=== PATIENT | female | born 1990 | race Caucasian/White ===

== ENCOUNTER → 2019-10-12 12:10 | Outpatient (CLI) | payer OTHER, SELFPAY ==
--- NOTE | 2019-10-12 12:14 | RAD_ITS ---
STUDY: HYSTEROSALPINGOGRAM REASON FOR EXAM: Female, 29 years old. FOR FERTILITY -- 4.10 MGY -- 1 IMAGE RADIATION DOSAGE (If Supplied By Facility): CTDIvol = ( ) mGy, DLP = ( ) mGycm. Individualized dose optimization techniques were used for this CT.? FLUOROSCOPY TIME (if supplied): ( 13 )seconds TECHNIQUE: Study was performed by Dr. Roberto, fluoroscopy provided by Dr. Lopez COMPARISON: None. FINDINGS: The cervix was cannulized and a balloon was inflated within the endometrium. Contrast was then injected by Dr. Roberto in a retrograde manner. There is normal filling of the endometrium there is no evidence of filling defect to suspect impinging lesion. There is free flow of contrast into both fallopian tubes and out the end with contrast noted in the peritoneum. RAD/Salpingogram IMPRESSION: Normal study Electronically Signed: Stephon Lopez MD at 13:20 EDT , Service support ,
== END ==
PROVIDERS: PCP Nurse Practitioner Family; Referring Provider Obstetrics & Gynecology; Visit Provider Obstetrics & Gynecology
DX: Z31.41 Encounter for fertility testing (principal)
CPT/HCPCS: 58340; 74740

== ENCOUNTER 2022-05-16 21:55 | Inpatient (IN) | payer OTHER, SELFPAY ==
[2022-05-16 21:29] VITALS: BMI 29.7
[2022-05-16 21:40] VITALS: BP 117/76; PULSE 81; PULSE 96; TEMP 36.7; O2SAT 97; O2SAT 98
[2022-05-16 22:07] LABS: ROM Internal Control Test YES-OK TO RESULT pt. (Internal QC)
[2022-05-16 22:08] LABS: ROM Patient Test POSITIVE (Negative)
[2022-05-16] MEDS: 0.9% Saline Lock 10 ML Syringe IV (22:10)
[2022-05-16 22:22] LABS: Absolute Lymphocyte Count 2.17 X10^3/uL (0.83-4.51); Absolute Neutrophil Count 8.5 X10^3/uL (2.0-7.7); Basophil# 0.02 X10^3/uL; Basophil% 0.2 % (0-1); Eosinophil# 0.05 X10^3/uL; Eosinophils% 0.4 % (0-5); Hematocrit 38.2 % (37-47); Hemoglobin 12.9 g/dL (12.0-15.0); Lymphocyte # 2.17 X10^3/ul (0.83-4.51); Lymphocyte % 18.7 % (19-41); Mean Corp Hgb Conc 33.8 g/dL (32-36); Mean Corpuscular Hgb 29.7 pg (27.0-32.0); Mean Platelet Vol. 10.9 fl (6.2-12.0); Monocyte# 0.81 X10^3/uL; NRBC Flagged by Analyzer 0 % (0-5); Neutrophil # 8.51 X10^3/uL (2.7-7.7); Neutrophil % 73.2 % (47-70); Platelet Count 163 K/mm3 (150-450); RBC Distribution Width CV 13.4 % (11.6-14.6); RBC Distribution Width SD 42.9 fl (35.1-43.9); Red Blood Count 4.34 M/mm3 (4.2-5.4); White Blood Count 11.6 K/mm3 (4.4-11.0)
--- NOTE | 2022-05-16 22:28 | HP.PCM.OB_ITS ---
HPI - General General Date of Admission: 05/16/22 HPI Narrative BHARAT BURROUGHS, is a 31 F at 39.2 weeks gestation who presents with contractions and spontaneous rupture of membranes. complicated by hypothyroidism, history of asthma, and infertility. Maternal Data Information NUSRAT Calculator Estimated Delivery Date Method Current WG Current Estimate 05/21/22 Manual 39w 2d PFSH PFSH Medical History (Updated 05/16/22 @ 22:38 by Petra Gee CNM) Asthma Superficial varicosities Thyroid disorder Home Medications levothyroxine 50 mcg tablet (Synthroid) 50 mcg PO DAILY see provider 05/16/22 [History Last Taken 05/16/22 06:00] magnesium 1 tab PO DAILY see provider 05/16/22 [History Last Taken 05/15/22 08:00] [id number] 1 mg tablet 1 tab PO DAILY see provider 05/16/22 [History Last Taken 05/15/22 21:00] Allergy/AdvReac Type Severity Reaction Status Date / Time latex AdvReac Rash Verified 05/16/22 21:30 Sulfa (Sulfonamide AdvReac Hives Verified 05/16/22 21:30 Antibiotics) Surgical History (Updated 05/16/22 @ 22:32 by Bernie Dela Cruz) History of surgery Social History Smoking Status: Never smoker History Elective abortions Hx Para 1 Spontaneous abortions Hx # Term Pregnancies Ectopic pregnancies Hx # Pregnancies Multiple births # of living children Visit Details OB Flowsheet Initial Weight: Not Recorded Date -?-?-?-?-?-?-?-?-?-?-?-?- EGA Weight BP Urine Prot -?-?-?-?--?-?-?-?-?-?-?-?- Glucose FHR FuHt Pres Dilation -?-?-?-?-?-?-?-?-?-?--?-?- Effaced St Visit Note 05/16/22 -?-?-?-?-?-?-?-?-?-?-?-?- 39w 2d 173 lb 1.006 oz 117/76 -?-?-?-?-?-?-?-?-?-?-?-?- -?-?-?-?-?-?-?-?-?-?-?-?- ROS Eyes Eyes: Denies blurry vision, change in vision or spots in vision ENT HEENT: Denies dizziness or headache(s) Cardiovascular Cardiovascular: Denies abdominal pain, chest pain or dyspnea Respiratory/Chest Respiratory/Chest: Denies cough, dyspnea, shortness of breath at rest or shortness of breath with exertion Gastrointestinal Gastrointestinal: Denies abdominal pain, diarrhea or vomiting Genitourinary Genitourinary: Denies change in urinary stream, difficulty urinating or dysuria Musculoskeletal Musculoskeletal: Reports none Integumentary Integumentary: Denies rash Neurologic Neurologic: Denies dizziness, headache(s), memory loss or weakness Psychiatric Psychiatric: Reports none Vital Signs Vital Signs Vital Signs: 05/16/22 21:40 05/16/22 21:40 05/16/22 21:40 Temperature Temperature Source Pulse Rate 81 96 Blood Pressure 117/76 BP Systolic 117 BP Diastolic 76 Pulse Ox 05/16/22 21:40 05/16/22 21:40 05/16/22 21:40 Temperature Temperature Source Temporal Pulse Rate Blood Pressure BP Systolic BP Diastolic Pulse Ox 97 98 05/16/22 21:40 Temperature 98.0 F Temperature Source Pulse Rate Blood Pressure BP Systolic BP Diastolic Pulse Ox Weight Weight: 173 lb 1.006 oz Body Mass Index (BMI) 29.7 Physical Exam Const alert, oriented x3 and no apparent distress General Appearance: cooperative Orientation / Consciousness: awake Exam Limitations: no limitations HEENT normocephalic Head and Scalp: normal to inspection Eyes General Eye: normal appearance of both eyes Neck full ROM and no lymphadenopathy Lymph Lymphatic: no lymphadenopathy noted Chest inspection of chest normal Resp normal respiratory effort, normal air movement and clear to auscultation bilaterally Effort and Inspection: able to speak in complete sentences and symmetric chest movement Cardio regular rate and regular rhythm GI normal to inspection, nondistended, normoactive bowel sounds Manual OB Exam: presentation cephalic Amniotic Fluid: clear amniotic fluid Back/Spine normal ROM Extremity full ROM and no calf tenderness Skin no rashes or lesions noted General Skin Exam: no breakdown Neuro oriented x3 and CN's II-XII intact bilaterally Psych mental status grossly normal and thought process normal Labs Labs Labs: Blood Type B POSITIVE Antibody Screen NEGATIVE Hct 38.2 % (37-47) Hgb 12.9 g/dL (12.0-15.0) Rhogam given: No GBS negative Assessment & Plan (1) 39 weeks gestation of : (2) Spontaneous onset of labor: (3) Spontaneous rupture of amniotic membranes: (4) History of asthma: (5) Thyroid disorder: COMMENT: hypothyroidism (6) Family history of Down syndrome: PLAN: Plan ROM plus- positive CE- /-1 Admit to labor and delivery Routine labs Start IV and run fluids per policy GBS negative IA Pain medications when indicated Anticipate Dr. Roberto notified of admission and is collaborating physician
[2022-05-16 22:42] VITALS: TEMP 36.6; O2SAT 95
[2022-05-16 22:43] VITALS: BP 126/61; PULSE 72
[2022-05-16 23:23] VITALS: PULSE 57
[2022-05-16 23:59] VITALS: BP 132/78; PULSE 99; TEMP 36.2; O2SAT 96
[2022-05-17] VITALS (37 sets, daily range): BP systolic 110–138; BP diastolic 63–93; PULSE 48–79; RESP 16–18; TEMP 36.3–37.1; O2SAT 94–100
[2022-05-17] MEDS: Oxytocin 10 UNITS/ML Vial IM (02:21)
[2022-05-17] MEDS: Methylergonovine 0.2 MG/ML Ampul IM (02:43)
[2022-05-17] MEDS: Lactated Ringers 1,000 ML 200 ML IV (02:45)
--- NOTE | 2022-05-17 02:48 | EX.PCM.OBRPT ---
Assessment & Plan (1) (spontaneous vaginal delivery): (2) Laceration, obstetrical, first degree: (3) Care and examination of lactating mother: (4) Thyroid disorder: COMMENT: hypothyroidism Maternal Data Information NUSRAT Calculator Estimated Delivery Date Method Current WG Current Estimate 05/21/22 Manual 39w 3d Vaginal Delivery Maternal Presentation Maternal Presentation: Active Labor and Spontaneous Rupture of Membranes Maternal Presentation: at 39.2 weeks gestation with spontaneous rupture of membranes and onset of labor. Operative Information Date of Procedure: 05/17/22 Pre-Operative Diagnosis: Term gestation, Spontaneous onset of labor, Spontaneous rupture of membranes Post-Operative Diagnosis: , live female Surgery / Procedure Performed: Spontaneous Vaginal Delivery Type of Anesthesia: Local with 1% Lidocaine Estimated Blood Loss: 350 Time of Delivery: 02:16 Findings Description of Procedure: Called to room due to patient feeling urge to bear down. Small forebag ruptured for clear fluid. With minimal maternal effort, head delivered over intact perineum followed immediately by anterior shoulder and remainder of body. Vigorous female placed immediately skin to skin with patient. Long umbilical cord noted. Pitocin IM given for active management of the third stage of labor. 3 vessel cord clamped and cut by FOB after 2 minute delay. Uterus initially boggy but firmed with massage. A dose of Methergine IM given. Placenta delivered spontaneously and intact via Hickman maneuver. A first degree vaginal laceration repaired in usual fashion using Vicryl 3-0 Rapid after local anesthesia. Hemostasis obtained. Fundus now firm 2 below U. EBL 350 cc. APGARS 8/9. Patient and bonding well at this time. Dr. Roberto notified of delivery. Presentation: Vertex Amniotic Membrane Rupture Type: Spontaneous Time of Membrane Rupture: 1615 Amniotic Fluid Description: Clear Placental Delivery Description: Spontaneous Placenta Disposition: [facility] Cord Vessel Description: 3 Vessels Cord Entanglement: None Infant A Gender: Female (1 minute): 8 (5 minute): 9 Delayed Cord Clamping: Yes Post Vaginal Delivery Medications Given After Delivery: IM Methergin and - (IM PITOCIN) Episiotomy Description: None Laceration: 1st degree Complication Complications: None
[2022-05-17] MEDS: 0.9% Saline Lock 10 ML Syringe IV (03:50)
[2022-05-17] MEDS: Naproxen 500 MG Tablet PO (03:50)
[2022-05-17] MEDS: Benzocaine/Lanolin/Aloe Vera 1 SPRAY EACH TOPICAL (03:50)
[2022-05-17] MEDS: Levothyroxine 50 MCG Tablet PO (07:35)
[2022-05-17] MEDS: Prenatal Vits Tablet 1 TABLET PO (12:04)
[2022-05-18] VITALS (7 sets, daily range): BP systolic 106–117; BP diastolic 55–63; PULSE 60–66; RESP 16; TEMP 36.3–36.7; O2SAT 97–98
[2022-05-18] MEDS: Levothyroxine 50 MCG Tablet PO (05:54)
--- NOTE | 2022-05-18 08:05 | PCM.PN.OB ---
Subjective Subjective Patient seen at bedside. Feeling good. Denies any pain. Ambulating and voiding without difficulty. independently. Desires discharge home today. Objective Data Objective Data Vital Signs: Vital Signs Temp Pulse Resp BP Pulse Ox O2 Del Method 97.3 F L 66 16 109/58 L 98 Room Air 05/18/22 04:35 05/18/22 04:38 05/18/22 04:35 05/18/22 04:38 05/18/22 04:37 05/18/22 04:35 Oxygen Delivery Method Room Air Weight: 173 lb 1.006 oz Body Mass Index (BMI) 29.7 Intake & Output: Intake and Output for Last 24 Hours 05/16/22 05/17/22 05/18/22 23:59 23:59 23:59 Intake Total 50 / 50 Output Total 700 / 700 Balance -650 / -650 Lab / Micro Data Result Diagrams: 05/16/22 22:10 ROS Eyes Eyes: Denies blurry vision, change in vision or spots in vision ENT HEENT: Denies dizziness or headache(s) Cardiovascular Cardiovascular: Denies abdominal pain, chest pain or dyspnea Respiratory/Chest Respiratory/Chest: Denies cough, dyspnea, shortness of breath at rest or shortness of breath with exertion Gastrointestinal Gastrointestinal: Denies abdominal pain, diarrhea or vomiting Genitourinary Genitourinary: Denies change in urinary stream, difficulty urinating or dysuria Musculoskeletal Musculoskeletal: Reports none Integumentary Integumentary: Denies rash Neurologic Neurologic: Denies dizziness, headache(s), memory loss or weakness Physical Exam Const alert and no apparent distress General Appearance: cooperative and comfortable Exam Limitations: no limitations HEENT normocephalic Eyes General Eye: normal appearance of both eyes Neck full ROM General: normal visual inspection Chest Chest: symmetrical chest wall rise Resp normal respiratory effort and normal air movement Effort and Inspection: symmetric chest movement Auscultation: clear to auscultation bilaterally Cardio regular rate and regular rhythm GI normal to inspection, nondistended, normoactive bowel sounds Back/Spine normal ROM Extremity full ROM and no calf tenderness General Extremity: normal exam except as noted Skin no rashes or lesions noted Neuro CN's II-XII intact bilaterally Psych mental status grossly normal Assessment & Plan (1) Care and examination of lactating mother: (2) Laceration, obstetrical, first degree: (3) (spontaneous vaginal delivery): PLAN: Plan PPD 1 Routine care support D/C home and follow up in office
--- NOTE | 2022-05-18 08:07 | PCM.DC ---
Discharge Instructions Diet Discharge Diet: No restrictions Activity Discharge Activity: Return to Normal Activity, May Shower and May Take a Tub Bath May resume sexual activity in: 4-6 weeks Weight Bearing Status: Weight bearing as tolerated Dressing / Incision Call your doctor if you observe: Inability to urinate, Using more than 1 pad per hour, Shortness of breath, Dizziness, Swelling in the ankles, Chest pain, Calf discomfort and Uncontrolled pain Follow Up Care Please Follow Up With: Petra Gee CNM When: Within 14 days Test Results: Test results from this visit will be discussed in further detail at your follow-up appointment, if applicable. Discharge Plan Admission Admit Date/Time: 05/16/22 21:55 Primary Reason for Your Visit: Labor and Delivery Attending Provider: Petra Gee Primary Care Provider: Jyothi Acharya NP Discharge Orders/Prescriptions Prescriptions: No Action levothyroxine [Synthroid] 50 mcg Tablet 50 mcg PO DAILY 1 mg Tablet 1 tab PO DAILY magnesium Tablet 1 tab PO DAILY Referrals / Follow Up: Jyothi Acharya NP, MEDICAL PHYSICS PROFESSOR-C [Primary Care Provider] - Disposition Disposition (needs filled in before D/C Order can be placed): Home, Self Care
== END 2022-05-18 09:40 | disposition home or self-care (01) | DRG 807 ==
LOC: WP 22:00 → WPOUT 05-19 10:46
PROVIDERS: Admitting Provider Advanced Practice Midwife; PCP Nurse Practitioner Family; Visit Provider Advanced Practice Midwife
DX: O70.0 First degree perineal laceration during delivery (principal); Z37.0 Single live birth; E03.9 Hypothyroidism, unspecified; O99.284 Endocrine, nutritional and metabolic diseases complicating childbirth; Z3A.39 39 weeks gestation of pregnancy; Z82.79 Family history of other congenital malformations, deformations and chromosomal abnormalities
CPT/HCPCS: 59025; 59050; 84112; 85025; 86850; 86900; 86901; 99221; J7120; A4216; G0378